=== PATIENT | female | born 1980 | race Caucasian/White ===

== ENCOUNTER → 2017-08-07 15:41 | Outpatient (CLI) | payer OTHER | END | disposition home or self-care (01) | LOC: LAB 15:41 | DX: Z00.00 Encounter for general adult medical examination without abnormal findings (principal) ==

== ENCOUNTER → 2018-10-04 06:24 | Outpatient (CLI) | payer OTHER | END | disposition home or self-care (01) | LOC: LAB 06:24 | DX: E78.49 Other hyperlipidemia (principal); R42 Dizziness and giddiness; Z00.00 Encounter for general adult medical examination without abnormal findings ==